=== PATIENT | female | born 1990 | race Caucasian/White ===

== ENCOUNTER 2022-04-05 10:45 | Outpatient (CLI) | payer OTHER, SELFPAY ==
[2022-04-05 12:53] LABS: Cholesterol* 226 mg/dL (90-199); Triglycerides* 83 mg/dL (40-149)
[2022-04-05 12:54] LABS: HDL Cholesterol* 61 mg/dL (>=50); LDL Cholesterol Calculated 148 mg/dL (<100)
[2022-04-06 17:09] LABS: Total T3 94 ng/dL (80-200)
[2022-04-06 23:31] LABS: Anti-Nuclear Ab(ANA)IgG ELISA None Detected (None Detected)
== END 2022-04-05 10:46 | disposition home or self-care (01) ==
PROVIDERS: PCP Nurse Practitioner Family; Visit Provider Nurse Practitioner Family
DX: Z01.419 Encounter for gynecological examination (general) (routine) without abnormal findings (principal); L65.9 Nonscarring hair loss, unspecified; E06.9 Thyroiditis, unspecified; Z13.6 Encounter for screening for cardiovascular disorders
CPT/HCPCS: 80061; 84443; 84480; 86039

== ENCOUNTER 2022-08-30 09:58 | Outpatient (CLI) | payer OTHER, SELFPAY ==
[2022-08-30 17:50] LABS: Albumin* 4.2 g/dL (3.3-5.0); Chloride* 104 mmol/L (96-114); Potassium* 4.1 mmol/L (3.6-5.1); Sodium* 138 mmol/L (135-149)
[2022-08-30 17:52] LABS: Bilirubin Total* 0.8 mg/dL (0.1-1.5); Creatinine* 0.5 mg/dL (0.5-1.5); Estimated Glomerular Filt Rate 128 ml/min; Iron* 136 ug/dL (37-170)
[2022-08-30 17:53] LABS: Alanine Aminotransferase* 22 U/L (4-35); Alkaline Phosphatase* 77 U/L (40-150); Aspartate Amino Transferase* 24 U/L (12-35); Blood Urea Nitrogen* 16 mg/dL (5-24); Calcium* 9.4 mg/dL (8.4-10.6); Carbon Dioxide* 27 mmol/L (20-32); Glucose* 88 mg/dL (60-115)
[2022-08-30 18:01] LABS: Percent Iron Saturation 40 % (20-50); Total Iron Binding Capacity 340 ug/dL (265-497)
[2022-08-30 18:11] LABS: Erythrocyte SedimentationRate* 10 mm/hr (2-20)
[2022-08-30 18:27] LABS: Ferritin* 50.3 ng/mL (6.24-137.0)
[2022-08-30 18:42] LABS: Vitamin B12* 707 pg/mL (243-894)
== END 2022-08-30 09:59 | disposition home or self-care (01) ==
PROVIDERS: PCP Nurse Practitioner Family; Visit Provider Nurse Practitioner Family
DX: R10.9 Unspecified abdominal pain (principal); R53.83 Other fatigue; R31.9 Hematuria, unspecified; E78.5 Hyperlipidemia, unspecified; F41.9 Anxiety disorder, unspecified; N94.6 Dysmenorrhea, unspecified; E06.9 Thyroiditis, unspecified
CPT/HCPCS: 80053; 82607; 82728; 83516; 83540; 83550; 85651

== ENCOUNTER 2022-10-17 07:33 | Outpatient (CLI) | payer OTHER, SELFPAY ==
--- NOTE | 2022-10-17 07:45 | CRLHL7_ITS ---
Final Report: ADDENDUM: Correction. Under the final interpretation this should state RIGHT breast asymmetry, not LEFT. Dictated by: Nicholas Finch MD @10/19/2022 8:32:17 AM For Patients: As a result of the Cures Act, medical imaging exams and procedure reports are released immediately into your electronic medical record. You may view this report before your referring provider. If you have questions, please contact your health care provider. BILATERAL SCREENING MAMMOGRAM WITH COMPUTER-AIDED DETECTION AND TOMOSYNTHESIS CLINICAL HISTORY: Screening. TECHNIQUE: CC and MLO views were obtained. These mammographic images have been obtained using full-field digital technique. These mammographic images were interpreted with the benefit of computer-aided detection. Breast Tomosynthesis was used in this interpretation. COMPARISON FILM: No comparison. BREAST COMPOSITION: The breasts are heterogeneously dense, which may obscure small masses. FINDINGS: 0.9 cm possible asymmetry RIGHT lateral breast 5 cm from the nipple. Negative findings LEFT breast. IMPRESSION: Possible LEFT breast asymmetry. Recommend CC spot compression view and 90-degree lateral view. Additionally, ultrasound may be needed during the diagnostic evaluation. ASSESSMENT: BI-RADS Category 0: Incomplete: Need Additional Imaging Evaluation and/or Prior Mammograms for Comparison The [facility] will contact the patient for follow-up. A lay language report of this examination will be provided to the patient. Vita Burrows M.D. Diagnostic/Breast Radiologist [email or web address] LEILANI/colten PT/Dictated by: Vita Burrows MD @ 10/17/2022 9:39:00 AM (Electronically Signed)
== END 2022-10-17 07:34 | disposition home or self-care (01) ==
LOC: MAMMO 07:34
PROVIDERS: PCP Nurse Practitioner Family; Visit Provider Nurse Practitioner Family
DX: Z12.31 Encounter for screening mammogram for malignant neoplasm of breast (principal); R92.2 Inconclusive mammogram
CPT/HCPCS: 77063; 77067

== ENCOUNTER 2022-10-24 08:30 | Outpatient (CLI) | payer OTHER, SELFPAY ==
--- NOTE | 2022-10-24 08:45 | CRLHL7_ITS ---
For Patients: As a result of the Cures Act, medical imaging exams and procedure reports are released immediately into your electronic medical record. You may view this report before your referring provider. If you have questions, please contact your health care provider. DIGITAL DIAGNOSTIC RIGHT MAMMOGRAM USING TOMOSYNTHESIS AND COMPUTER-AIDED DETECTION RIGHT BREAST ULTRASOUND CLINICAL HISTORY: RIGHT breast mass/asymmetry. COMPARISON: 10/17/2022. TECHNIQUE: Digital RIGHT mammogram in two projections. Tomosynthesis and CAD utilized. Real-time ultrasound imaging of RIGHT breast with imaging documentation. BREAST COMPOSITION: The breast is heterogeneously dense, which may obscure small masses. FINDINGS: 3D spot compression CC and 3D true lateral RIGHT breast mammogram images submitted. Decreased conspicuity of previously noted asymmetric density. No suspicious masses or architectural distortion. No suspicious calcifications or adenopathy. Targeted RIGHT breast ultrasound performed. At 10 o`clock 4 cm from the nipple there is no suspicious finding. Normal fibroglandular tissue. IMPRESSION: Normal additional mammogram images RIGHT breast and normal targeted RIGHT breast ultrasound. No evidence of malignancy. RECOMMENDATIONS: Age-appropriate screening mammography. Results and recommendations discussed with the patient. BI-RADS Category 2: Benign A lay language report of this examination will be provided to the patient. Dictated by Tray Tucker MD @ 10/24/2022 9:53:20 AM jj/Dictated by: Tray Tucker MD @ 10/24/2022 9:53:00 AM (Electronically Signed)
--- NOTE | 2022-10-24 09:15 | CRLHL7_ITS ---
For Patients: As a result of the Century Cures Act, medical imaging exams and procedure reports are released immediately into your electronic medical record. You may view this report before your referring provider. If you have questions, please contact your health care provider. PLEASE SEE DIGITAL DIAGNSOTIC RIGHT MAMMOGRAM PERFORMED SAME DAY CRL:elder friedman/Dictated by: Tray Tucker MD @ 10/24/2022 9:53:00 AM (Electronically Signed)
== END 2022-10-24 08:31 | disposition home or self-care (01) ==
LOC: MAMMO 08:31
PROVIDERS: PCP Nurse Practitioner Family; Visit Provider Nurse Practitioner Family
DX: N63.10 Unspecified lump in the right breast, unspecified quadrant (principal); R92.8 Other abnormal and inconclusive findings on diagnostic imaging of breast
CPT/HCPCS: 76642; 77065; G0279

== ENCOUNTER 2023-01-25 11:22 | Outpatient (CLI) | payer OTHER, SELFPAY | END 2023-01-25 11:23 | disposition home or self-care (01) | PROVIDERS: PCP Nurse Practitioner Family; Visit Provider Family Medicine | DX: J02.0 Streptococcal pharyngitis (principal) | CPT/HCPCS: 87070 ==

== ENCOUNTER 2025-02-04 14:54 | Outpatient (CLI) | payer BC, SELFPAY ==
--- NOTE | 2025-02-04 15:00 | CRLHL7_ITS ---
For Patients: As a result of the Century Cures Act, medical imaging exams and procedure reports are released immediately into your electronic medical record. You may view this report before your referring provider. If you have questions, please contact your health care provider. INDICATION: Pelvic and perineal pain COMPARISON: None TECHNIQUE: Weiss-scale and color Doppler ultrasound of the uterus and ovaries from a transabdominal and transvaginal approach. Transvaginal ultrasound of the pelvis was performed to better visualize the genitourinary organs, such as the ovaries and/or endometrium. Color-flow and spectral Doppler imaging of both ovaries is performed. FINDINGS: The uterus measures 9.5 x 4.5 x 5.2 cm and demonstrates minimally heterogeneous echogenicity without mass or lesion. scar(s) along the anterior uterine body. Intrauterine device appears appropriately positioned within the endometrial canal. No abnormal endometrial thickening. No endometrial masses. The cervix is normal. The right ovary measures 3.6 x 2.1 x 2.3 cm. Physiologic appearance without a dominant cystic lesion or solid ovarian / adnexal mass. There is normal arterial and venous color Doppler flow and normal arterial and venous waveforms on duplex Doppler. The left ovary measures 2.8 x 1.6 x 2.0 cm. Physiologic appearance without a dominant cystic lesion or solid ovarian / adnexal mass. There is normal arterial and venous color Doppler flow and normal arterial and venous waveforms on duplex Doppler. No free fluid. IMPRESSION: 1. No sonographic evidence of an acute abnormality involving the pelvis. 2. Appropriately positioned intrauterine device. 3. The uterus and ovaries are unremarkable. Dictated by Ruben Sanchez MD @ 02/04/2025 3:57:37 PM (Electronically Signed)
== END 2025-02-04 14:55 | disposition home or self-care (01) ==
LOC: US 14:55
PROVIDERS: PCP Nurse Practitioner Family; Visit Provider Family Medicine
DX: R10.2 Pelvic and perineal pain (principal); N94.89 Other specified conditions associated with female genital organs and menstrual cycle
CPT/HCPCS: 76830; 76856; 87491; 87591; 93976

== ENCOUNTER 2025-02-08 12:34 | Outpatient (CLI) | payer BC, SELFPAY ==
--- NOTE | 2025-02-08 13:00 | CRLHL7_ITS ---
For Patients: As a result of the Century Cures Act, medical imaging exams and procedure reports are released immediately into your electronic medical record. You may view this report before your referring provider. If you have questions, please contact your health care provider. INDICATION: LOW PELVIC PRESSURE, WT LOSS, NAUSEA TECHNIQUE: CT abdomen and pelvis acquired with 93 cc Isovue 370 IV contrast. COMPARISON: None. FINDINGS: Lower chest: The visualized lower lungs are aerated. No pleural or pericardial effusion. ABDOMEN: Liver: Diffuse hepatic steatosis. Hepatomegaly measuring 20 cm. Gallbladder and biliary: Contracted gallbladder. Normal caliber bile ducts. Spleen: Normal size and enhancement. Pancreas: Normal enhancement without peripancreatic inflammatory changes or ductal dilatation. Adrenal glands: Normal adrenal glands. Kidneys and ureters: Normal enhancement. No radio-opaque calculi. No hydroureteronephrosis. GI tract: Stomach is partially distended with fluid and air. Normal caliber small and large bowel loops. Normal appendix. Vascular structures: Normal caliber abdominal aorta. Lymph nodes: No lymphadenopathy in the abdomen or pelvis by size criteria. Peritoneum: No free air, free fluid, or focal drainable fluid collection. PELVIS: Genitourinary system: Normal urinary bladder. Age-appropriate uterus and ovaries. Appropriately positioned IUD. SKELETAL STRUCTURES AND SOFT TISSUES: No suspicious lytic or blastic lesions. IMPRESSION: 1. No discrete acute process in the abdomen or pelvis. No obstruction. Normal appendix. No hydroureteronephrosis. 2. Hepatic steatosis with hepatomegaly. Please note that all CT scans at this facility use dose modulation, iterative reconstruction, and/or weight-based dosing when appropriate to reduce radiation dose to as low as reasonably achievable. Dictated by Tray Roberts MD @ 02/09/2025 2:25:30 PM (Electronically Signed)
== END 2025-02-08 12:35 | disposition home or self-care (01) ==
LOC: CT 12:35
PROVIDERS: PCP Nurse Practitioner Family; Visit Provider Family Medicine
DX: R10.2 Pelvic and perineal pain (principal); K76.0 Fatty (change of) liver, not elsewhere classified; N94.89 Other specified conditions associated with female genital organs and menstrual cycle; R63.4 Abnormal weight loss; R11.0 Nausea
CPT/HCPCS: 74177; Q9967